=== PATIENT | female | born 1990 | race African-American/Black ===

== ENCOUNTER 2021-11-29 23:35 | Emergency (ER) | payer OTHER ==
[~2021-11-29] VITALS: Ht 165.1 cm; Wt 83.9 kg
[~2021-11-29 23:35] MED LIST: DIPH-530 PO
[2021-11-29 23:59] VITALS: BP 135/79
[2021-11-30] MEDS ORDERED: IBUPROFEN 400 MG TABLET PO ONE
[2021-11-30] MEDS ORDERED: SULFAMETH/TRIMETH 800/160 MG 1 UDTAB TABLET PO ONE
[2021-11-30] MEDS ORDERED: SULF1TAB48 PO (00:04)
[2021-11-30] MEDS ORDERED: IBUP-1957 PO (00:04)
[2021-11-30] MEDS ORDERED: CEPH500C2 PO (00:04)
[2021-11-30] MEDS ORDERED: SULFAMETH/TRIMETH 800/160 MG 1 UDTAB TABLET ONE (00:06)
[2021-11-30] MEDS ORDERED: CEPHALEXIN MONOHYDRATE 500 MG CAPSULE PO ONE ×2 (00:06)
[2021-11-30] MEDS ORDERED: IBUPROFEN 400 MG TABLET ONE (00:06)
--- NOTE | 2021-11-30 00:10 | NUR ---
Patient discharged to home in stable condition. Written and verbal after care instructions given. Patient verbalizes understanding of instruction.
== END 2021-11-30 00:10 | disposition home or self-care (01) ==
LOC: ER 23:41
DX: L03.116 Cellulitis of left lower limb (principal); L73.1 Pseudofolliculitis barbae; Z60.2 Problems related to living alone